=== PATIENT | female | born 1990 | race Caucasian/White ===

== ENCOUNTER 2017-12-21 19:06 | Emergency (ER) | payer OTHER ==
[~2017-12-21] VITALS: Ht 160 cm; Wt 66.3 kg
[2017-12-21 19:59] VITALS: BP 124/91
== END 2017-12-21 20:06 | disposition home or self-care (01) ==
LOC: TRA 19:06
DX: R51 Headache (principal); V47.0XXA Car driver injured in collision with fixed or stationary object in nontraffic accident, initial encounter; Y92.410 Unspecified street and highway as the place of occurrence of the external cause
CPT/HCPCS: 99281; 99284